=== PATIENT | female | born 1975 ===

== ENCOUNTER 2023-06-29 01:20 | Inpatient (IN) | payer MEDICAID ==
[~2023-06-29] VITALS: Ht 157.5 cm; Wt 61.8 kg
[2023-06-29] MEDS ORDERED: magnesium hydroxide 30ml (MOM) UD suspension PO PRN (07:50)
[2023-06-29] MEDS ORDERED: loperamide 2mg capsule PO PRN (07:50)
[2023-06-29] MEDS ORDERED: acetaminophen 325mg tablet PO PRN (07:50)
[2023-06-29] MEDS ORDERED: mag hydrox/Alum hydrox/simeth 30ml oral suspension PO PRN (07:50)
[2023-06-29 11:04] VITALS: BP 132/97; PULSE 90; RESP 18; TEMP 98.3; O2SAT 100
[2023-06-29 11:53] VITALS: RESP 18; O2SAT 100
[2023-06-29] MEDS: nicotine 21mg patch - 24 hr TD SCH (12:00)
[2023-06-29] MEDS ORDERED: LEVO88TA7 PO (12:48)
[2023-06-29] MEDS ORDERED: PROZ10C PO (12:48)
[2023-06-29] MEDS: NICOTINE POLACRILEX 2 MG LOZENGE BC PRN ×2 (12:50→18:40)
[2023-06-29] MEDS ORDERED: potassium Cl 20 mEq SR tablet PO PRN (17:10)
[2023-06-29] MEDS: potassium Cl 20 mEq SR tablet PO PRN ×2 (17:29→21:26)
[2023-06-29 19:00] VITALS: RESP 18; O2SAT 99
[2023-06-29 20:00] VITALS: BP 148/96; PULSE 87; RESP 18; TEMP 97.7; O2SAT 99
[2023-06-29] MEDS: sulfamethoxazole/trimethoprim DS (800/160mg) tablet PO SCH (20:52)
[2023-06-29] MEDS: K and/or MAG REPLACEMENT MC SCH (20:53)
[2023-06-30] MEDS: potassium Cl 20 mEq SR tablet PO PRN (02:15)
[2023-06-30 07:00] VITALS: RESP 16; O2SAT 100
[2023-06-30] MEDS: sulfamethoxazole/trimethoprim DS (800/160mg) tablet PO SCH ×2 (07:29→20:28)
[2023-06-30] MEDS: levoTHYROXINE 88mcg tablet PO SCH (07:30)
[2023-06-30] MEDS: nicotine 21mg patch - 24 hr TD SCH (07:32)
[2023-06-30 08:00] VITALS: BP 170/111; PULSE 71; RESP 16; TEMP 98.3; O2SAT 100
[2023-06-30] MEDS: NICOTINE POLACRILEX 2 MG LOZENGE BC PRN ×2 (08:17→18:33)
[2023-06-30 09:12] LABS: HEMOGLOBIN A1C 5.2 % (4.5-6.2)
[2023-06-30 09:21] LABS: CHOL/HDL RATIO 5.6 (0.00-4.99); CHOLESTEROL 389 MG/DL (0-200); HDL CHOLESTEROL 69 MG/DL (35-60); LDL CHOLESTEROL 254 MG/DL (50-100); MAGNESIUM 2.2 MG/DL (1.5-2.4); POTASSIUM 4.2 MMOL/L (3.5-5.1); TRIGLYCERIDES 185 MG/DL (20-135)
[2023-06-30] MEDS: K and/or MAG REPLACEMENT MC SCH ×2 (10:11→20:00)
[2023-06-30 20:00] VITALS: BP 142/95; PULSE 85; RESP 16; TEMP 97.5; O2SAT 100
[2023-07-01] VITALS (7 sets, daily range): BP systolic 118–173; BP diastolic 70–110; PULSE 73–82; RESP 14–16; TEMP 97.4–97.9; O2SAT 98–100
[2023-07-01] MEDS: acetaminophen 325mg tablet PO PRN (05:17)
[2023-07-01] MEDS: NICOTINE POLACRILEX 2 MG LOZENGE BC PRN ×3 (05:26→19:04)
[2023-07-01] MEDS: hydrOXYzine 25 MG tablet PO PRN ×3 (05:44→21:16)
[2023-07-01] MEDS: atorvastatin 20mg tablet PO SCH (07:23)
[2023-07-01] MEDS: sulfamethoxazole/trimethoprim DS (800/160mg) tablet PO SCH ×2 (07:23→20:17)
[2023-07-01] MEDS: levoTHYROXINE 88mcg tablet PO SCH (07:23)
[2023-07-01] MEDS: nicotine 21mg patch - 24 hr TD SCH (07:27)
[2023-07-01] MEDS: K and/or MAG REPLACEMENT MC SCH ×2 (08:00→20:00)
[2023-07-01 08:47] LABS: MAGNESIUM 2.3 MG/DL (1.5-2.4)
[2023-07-01 08:53] LABS: ALANINE AMINOTRANSFERASE 140 U/L (12-78); ALBUMIN 4.2 G/DL (3.4-5.0); ALBUMIN/GLOBULIN RATIO 1.2 (1.1-1.5); ALKALINE PHOSPHATASE 67 IU/L (46-116); ANION GAP 11 (8-16); ASPARTATE AMINO TRANSFERASE 82 U/L (10-37); BILIRUBIN,TOTAL 0.4 MG/DL (0.1-1.0); BLOOD UREA NITROGEN 13 MG/DL (7-18); BUN/CREATININE RATIO 11.9 (10.0-20.0); CALCIUM 9.5 MG/DL (8.5-10.1); CHLORIDE 98 MMOL/L (99-107); CREATININE 1.09 MG/DL (0.40-0.90); GLUCOSE 90 MG/DL (70-104); POTASSIUM 3.9 MMOL/L (3.5-5.1); SODIUM 134 MMOL/L (135-145); TOTAL CARBON DIOXIDE 25.3 MMOL/L (24-32); TOTAL PROTEIN 7.8 G/DL (6.4-8.2); eCRCL 51 ML/MIN; eGFR 54 ML/MIN
[2023-07-01 12:56] LABS: HBSAG SCREEN Negative (Negative); HEP B CORE AB, IGM Negative (Negative); HEP B CORE AB, TOT Negative (Negative)
[2023-07-01] MEDS ORDERED: risperiDONE 0.5mg tablet PO ONE (14:05)
[2023-07-01] MEDS ORDERED: FLUoxetine 20mg capsule PO ONE (15:00)
[2023-07-01] MEDS: risperiDONE 0.5mg tablet PO SCH (20:18)
[2023-07-02] MEDS: hydrOXYzine 25 MG tablet PO PRN (03:22)
[2023-07-02] MEDS: acetaminophen 325mg tablet PO PRN (03:26)
[2023-07-02 07:00] VITALS: RESP 12; O2SAT 96
[2023-07-02] MEDS: sulfamethoxazole/trimethoprim DS (800/160mg) tablet PO SCH ×2 (07:22→20:05)
[2023-07-02] MEDS: atorvastatin 20mg tablet PO SCH (07:22)
[2023-07-02] MEDS: risperiDONE 0.5mg tablet PO SCH ×2 (07:22→20:05)
[2023-07-02] MEDS: levoTHYROXINE 88mcg tablet PO SCH (07:22)
[2023-07-02] MEDS: FLUoxetine 20mg capsule PO SCH (07:23)
[2023-07-02] MEDS: nicotine 21mg patch - 24 hr TD SCH (07:23)
[2023-07-02 08:00] VITALS: BP 139/87; PULSE 74; RESP 12; TEMP 97.8; O2SAT 96
[2023-07-02] MEDS: K and/or MAG REPLACEMENT MC SCH (08:00)
[2023-07-02] MEDS: NICOTINE POLACRILEX 2 MG LOZENGE BC PRN ×3 (08:47→20:06)
[2023-07-02 19:30] VITALS: BP 153/99; PULSE 85; RESP 14; TEMP 98.4; O2SAT 100
[2023-07-03] MEDS: acetaminophen 325mg tablet PO PRN (03:18)
[2023-07-03 07:00] VITALS: RESP 16; O2SAT 99
[2023-07-03] MEDS ORDERED: levoTHYROXINE 75mcg tablet PO SCH (07:00)
[2023-07-03 07:05] LABS: BASOPHILS # (AUTO) 0.1 X10'3 (0-0.2); BASOPHILS % (AUTO) 0.9 % (0-1); EOSINOPHILS # (AUTO) 0.2 X10'3 (0-0.9); EOSINOPHILS % (AUTO) 2.5 % (0-6); HEMATOCRIT 41.1 % (35.0-45.0); HEMOGLOBIN 13.8 g/dl (12.0-16.0); LYMPHOCYTES # (AUTO) 3.2 X10'3 (1.1-4.8); LYMPHOCYTES % (AUTO) 49.5 % (21-51); MEAN CORPUSCULAR HGB CONC 33.6 g/dL (33.0-36.5); MEAN CORPUSCULAR VOLUME 101.3 FL (78-98); MEAN PLATELET VOLUME 7.5 FL (7.4-10.4); MONOCYTES # (AUTO) 0.4 X10'3 (0-0.9); MONOCYTES % (AUTO) 6.6 % (2-12); NEUTROPHILS # (AUTO) 2.6 X10'3 (1.8-7.7); NEUTROPHILS % (AUTO) 40.5 % (42-75); PLATELET COUNT 249 X10'3 (140-440); RED BLOOD COUNT 4.05 X10'6 (4.20-5.60); RED CELL DISTRIBUTION WIDTH 14.7 % (11.5-14.5); WHITE BLOOD COUNT 6.4 X10'3 (4.5-11.0)
[2023-07-03] MEDS: sulfamethoxazole/trimethoprim DS (800/160mg) tablet PO SCH (07:36)
[2023-07-03] MEDS: risperiDONE 0.5mg tablet PO SCH (07:36)
[2023-07-03] MEDS: atorvastatin 20mg tablet PO SCH (07:37)
[2023-07-03] MEDS: FLUoxetine 20mg capsule PO SCH (07:37)
[2023-07-03 07:44] LABS: ALANINE AMINOTRANSFERASE 92 U/L (12-78); ALBUMIN 4.3 G/DL (3.4-5.0); ALBUMIN/GLOBULIN RATIO 1.2 (1.1-1.5); ALKALINE PHOSPHATASE 65 IU/L (46-116); ANION GAP 10 (8-16); ASPARTATE AMINO TRANSFERASE 36 U/L (10-37); BILIRUBIN,TOTAL 0.4 MG/DL (0.1-1.0); BLOOD UREA NITROGEN 20 MG/DL (7-18); BUN/CREATININE RATIO 16.4 (10.0-20.0); CALCIUM 9.3 MG/DL (8.5-10.1); CHLORIDE 102 MMOL/L (99-107); CREATININE 1.22 MG/DL (0.40-0.90); FREE T4 (FREE THYROXINE) 0.34 NG/DL (0.73-1.40); GLUCOSE 90 MG/DL (70-104); MAGNESIUM 2.4 MG/DL (1.5-2.4); PHOSPHORUS 3.6 MG/DL (2.3-4.5); POTASSIUM 4.1 MMOL/L (3.5-5.1); SODIUM 140 MMOL/L (135-145); TOTAL CARBON DIOXIDE 28.4 MMOL/L (24-32); TOTAL PROTEIN 7.9 G/DL (6.4-8.2); eCRCL 46 ML/MIN; eGFR 47 ML/MIN
[2023-07-03 08:00] VITALS: BP 132/90; PULSE 83; RESP 16; TEMP 97.9; O2SAT 99
[2023-07-03] MEDS ORDERED: amLODIPine 5mg tablet PO SCH (08:00)
[2023-07-03] MEDS ORDERED: ATOR20TA66 PO (13:15)
[2023-07-03] MEDS ORDERED: NOR5T PO (13:15)
[2023-07-03] MEDS ORDERED: SULF1TAB45 PO (13:15)
[2023-07-03] MEDS ORDERED: FLUO20CA46 PO (13:15)
[2023-07-03] MEDS ORDERED: RISP0.5T65 PO (13:15)
[2023-07-03] MEDS ORDERED: LEVO150T8 PO (13:15)
== END 2023-07-03 09:55 | disposition home or self-care (01) | DRG 751 ==
LOC: ADULT MH 11:01
PROVIDERS: ADMIT Psychiatry & Neurology Psychiatry; ATTEND Psychiatry & Neurology Psychiatry
PROC: GZHZZZZ Group Psychotherapy (ICD-10-PCS; principal; 2023-07-01)
PROC: GZ51ZZZ Individual Psychotherapy, Behavioral (ICD-10-PCS; 2023-07-01)
DX: F29 Unspecified psychosis not due to a substance or known physiological condition (principal); R45.851 Suicidal ideations; L02.211 Cutaneous abscess of abdominal wall; E03.9 Hypothyroidism, unspecified; I10 Essential (primary) hypertension; E78.00 Pure hypercholesterolemia, unspecified; F12.20 Cannabis dependence, uncomplicated; E87.6 Hypokalemia; F17.210 Nicotine dependence, cigarettes, uncomplicated; T38.1X6A Underdosing of thyroid hormones and substitutes, initial encounter; Y92.89 Other specified places as the place of occurrence of the external cause; Z80.9 Family history of malignant neoplasm, unspecified; Z79.899 Other long term (current) drug therapy; Z56.0 Unemployment, unspecified
CPT/HCPCS: 36415; 80053; 80061; 83036; 83735; 84100; 84132; 84145; 84439; 84443; 85025; 86704; 86705; 87081; 87340; A4649; A6449; Q0177